=== PATIENT | male | born 1990 | race Caucasian/White ===

== ENCOUNTER 2018-06-12 01:27 | Emergency (ER) | payer OTHER ==
[~2018-06-12] VITALS: Ht 188 cm; Wt 136.4 kg
[2018-06-12 05:03] LABS: BASOPHILS % (AUTO) 0.5 % (0.0-2.0); EOSINOPHILS % (AUTO) 2.9 % (1.0-6.0); HEMATOCRIT 45.2 % (41-53); HEMOGLOBIN 14.9 g/dL (13.5-17.5); LYMPHOCYTES # (AUTO) 2.4 K/uL (1.0-4.8); LYMPHOCYTES % (AUTO) 25.3 % (22.0-44.0); MEAN CORPUSCULAR HEMOGLOBIN 27.2 pg (26.0-34.0); MEAN CORPUSCULAR VOLUME 82 fL (80-100); MONOCYTES # (AUTO) 0.6 K/uL (0.1-1.0); MONOCYTES % (AUTO) 6.7 % (2.0-9.0); NEUTROPHILS % (AUTO) 64.6 % (40.0-70.0); PLATELET COUNT (AUTO) 217 K/uL (150-450); RED BLOOD CELL COUNT(AUTO) 5.49 MIL/uL (4.50-5.90); RED CELL DISTRIBUTION WIDTH 13.8 % (11.5-14.5)
[2018-06-12 05:06] LABS: ANION GAP 5 mmol/L (8-16); CALCIUM, TOTAL 9.3 mg/dL (8.8-10.5); CARBON DIOXIDE 30 mmol/L (22-29); CHLORIDE 103 mmol/L (98-107); CREATININE 0.95 mg/dL (0.60-1.30); GLOMERULAR FILTR. RATE CALC > 60 mL/min (>60); GLUCOSE,RANDOM 113 mg/dL (70-110); POTASSIUM 4.5 mmol/L (3.5-5.1); SODIUM SERUM 138 mmol/L (136-145); UREA NITROGEN, BLOOD 14 mg/dL (7-18)
[2018-06-12 05:12] LABS: ALANINE AMINOTRANSFERASE 68 U/L (12-78); ALBUMIN 3.8 g/dL (3.4-5.0); ALKALINE PHOSPHATASE 87 U/L (46-116); ASPARTATE AMINOTRANSFERASE 30 U/L (15-37); BILIRUBIN,TOTAL 0.4 mg/dL (0.1-1.0); TOTAL PROTEIN, SERUM 7.7 g/dL (6.4-8.2)
[2018-06-12 05:21] VITALS: BP 131/85
== END 2018-06-12 05:49 | disposition home or self-care (01) ==
LOC: EMS 01:27
DX: R20.2 Paresthesia of skin (principal); M79.602 Pain in left arm
CPT/HCPCS: 93005

== ENCOUNTER 2024-04-15 01:04 | Inpatient (IN) | payer SELFPAY ==
[2024-04-15] VITALS (7 sets, daily range): BP systolic 120; BP diastolic 40; PULSE 119–142; RESP 16–20; TEMP 102.7; O2SAT 68–100
[~2024-04-15] VITALS: Ht 188 cm; Wt 153.0 kg
[2024-04-15 01:54] LABS: COVID AG,FIA SOURCE NASAL SWAB
[2024-04-15 02:04] LABS: INFLUENZA TYPE A NEGATIVE FOR TYPE A (NEGATIVE); INFLUENZA TYPE B NEGATIVE FOR TYPE B (NEGATIVE)
[2024-04-15 02:06] LABS: SARS-COV2 (COVID) ANTIGEN,FIA Negative (Negative)
[2024-04-15] MEDS: ACETAMINOPHEN 500 MG TABLET PO ONE ×2 (03:11→14:00)
[2024-04-15] MEDS: KETOROLAC TROMETHAMINE 30 MG/ML VIAL IM ONE (03:11)
[2024-04-15 04:11] LABS: HEMATOCRIT 41.2 % (41-53); HEMOGLOBIN 13.4 g/dL (13.5-17.5); MEAN CORPUSCULAR HEMOGLOBIN 27.8 pg (26.0-34.0); MEAN CORPUSCULAR HGB CONC 32.6 G/dL (31.0-37.0); MEAN CORPUSCULAR VOLUME 85 fL (80-100); PLATELET COUNT (AUTO) 130 K/uL (150-450); RED BLOOD CELL COUNT(AUTO) 4.83 MIL/uL (4.50-5.90); RED CELL DISTRIBUTION WIDTH 14.6 % (11.5-14.5)
[2024-04-15 04:14] LABS: ANION GAP 20 mmol/L (8-16); CALCIUM, TOTAL 7.7 mg/dL (8.8-10.5); CARBON DIOXIDE 18 mmol/L (22-29); CHLORIDE 94 mmol/L (98-107); CREATININE 4.88 mg/dL (0.60-1.30); GLOMERULAR FILTR. RATE CALC 14 mL/min (>60); GLUCOSE,RANDOM 104 mg/dL (70-110); POTASSIUM 3.8 mmol/L (3.5-5.1); SODIUM SERUM 132 mmol/L (136-145); UREA NITROGEN, BLOOD 41 mg/dL (7-18)
[2024-04-15] MEDS: SODIUM CHLORIDE 0.9% 1,000 ML IV ONE ×4 (04:16→09:47)
[2024-04-15 04:32] LABS: LACTIC ACID 9.9 mmol/L (0.4-2.0)
[2024-04-15 04:45] LABS: C-REACTIVE PROTEIN QUANT 23.51 mg/dL (0.00-0.30); CREATINE KINASE, TOTAL ONLY 241 U/L (39-308)
[2024-04-15 04:59] LABS: BAND NEUTROPHILS % (MANUAL) 5 % (0-5); LYMPHOCYTES % (MANUAL) 4 % (22-44); MONOCYTES % (MANUAL) 4 % (2-9); SEGMENTED NEUTROPHILS % 87 % (40-70); TOTAL CELLS COUNTED 100
[2024-04-15] MEDS: VANCOMYCIN 1.75GM/WATER(PEG) 350 ML IV ONE (05:12)
[2024-04-15] MEDS: PIPERACILLIN SODIUM/TAZOBACTAM 4.5 GM in DEXTROSE 5%-WATER 100 ML IV ONE (05:12)
[2024-04-15 06:34] LABS: ALANINE AMINOTRANSFERASE 61 U/L (12-78); ALBUMIN 2.4 g/dL (3.4-5.0); ALKALINE PHOSPHATASE 119 U/L (46-116); ASPARTATE AMINOTRANSFERASE 45 U/L (15-37); BILIRUBIN,TOTAL 5.4 mg/dL (0.1-1.0); TOTAL PROTEIN, SERUM 5.4 g/dL (6.4-8.2)
[2024-04-15] MEDS: HYDROmorphone HCL 2 MG/ML SYRINGE IVP ONE (06:34)
[2024-04-15] MEDS ORDERED: 0.9% SODIUM CHLORIDE 5 ML NEB SOLUTION NEB ONE (06:36)
[2024-04-15] MEDS: ALBUTEROL SULFATE 2.5 MG/0.5 ML NEB SOLUTION NEB ONE (06:39)
[2024-04-15] MEDS ORDERED: ROCURONIUM BROMIDE 10 MG/ML 5 ML VIAL ONE (06:44)
[2024-04-15] MEDS ORDERED: FentaNYL CITRATE PF 100 MCG/2 ML VIAL ONE (06:44)
[2024-04-15] MEDS ORDERED: MIDAZOLAM HCL 2 MG/2 ML VIAL ONE (06:44)
[2024-04-15] MEDS ORDERED: PROPOFOL 1% 20 ML VIAL IVP ONE (06:44)
[2024-04-15] MEDS ORDERED: EPINEPHrine 1:10,000 [1 MG/10 ML] SYRINGE ONE (06:44)
[2024-04-15] MEDS ORDERED: LIDOCAINE/PF 2% 5 ML VIAL ONE (06:44)
[2024-04-15] MEDS ORDERED: 0.9% SODIUM CHLORIDE 10 ML VIAL ONE (06:44)
[2024-04-15] MEDS ORDERED: PHENYLEPHRINE HCL 10 MG/ML VIAL ONE (06:44)
[2024-04-15] MEDS: NOREPINEPHRINE 8 MG/0.9 % NACL 250 ML IV PRN (06:46)
[2024-04-15] MEDS: PHENYLEPHRINE 200 MG/D5%-WATER 250 ML IV PRN (08:59)
[2024-04-15] MEDS: CLINDAMYCIN 900 MG/D5% WATER 50 ML IV ONE (09:47)
[2024-04-15 09:52] LABS: PROTHROMBIN TIME 15.2 SEC (9.4-11.6)
[2024-04-15] MEDS: VASOPRESSIN 40 UNITS in DEXTROSE 5%-WATER 98 ML IV PRN (10:38)
[2024-04-15 12:51] LABS: ABG BASE EXCESS -22.2 mmol/L (-2.0-3.0); ABG CARBOXYHEMOGLOBIN 0.8 % (0.5-1.5); ABG METHEMOGLOBIN 0.9 % (0.0-1.5); ABG OXYGEN CONTENT 19.4 mL/dL (15.0-23.0); ABG OXYGEN SATURATION 96.4 % (94.0-98.0); ABG OXYHEMOGLOBIN 94.8 % (94.0-98.0); ABG PCO2 23 mmHg (32.0-48.0); ABG TOTAL HEMOGLOBIN 14.5 G/dL (13.5-17.5); PO2, ARTERIAL BG 97.7 mmHg (83.0-108.0); SOURCE, BLOOD GAS ARTERIAL; TEMPERATURE, FAHRENHEIT, BG 100.8 FAHREN (96.0-98.6)
[2024-04-15 12:52] LABS: ABG A-A DIFF O2 24.2 mmHg (10-20.0); ABG PH 7.112 (7.350-7.450); O2 DEVICE,BLOOD GAS ROOM AIR (ROOM AIR); SITE, BLOOD GAS ARTERIAL LINE
[2024-04-15] MEDS ORDERED: HYDROmorphone HCL 2 MG/ML SYRINGE IVP PRN (15:30)
[2024-04-15] MEDS ORDERED: MEPERIDINE-PF 25 MG/ML VIAL IVP PRN (15:30)
[2024-04-15] MEDS ORDERED: FentaNYL CITRATE PF 100 MCG/2 ML VIAL IVP PRN (15:30)
[2024-04-15] MEDS ORDERED: RINGERS SOLUTION,LACTATED 0 ML IV ONE (16:14)
[2024-04-15] MEDS ORDERED: SODIUM CHLORIDE 0.9% 1,000 ML ONE (16:16)
[2024-04-15] MEDS: CHLORHEXIDINE GLUCONATE 2% TOWELETTE [2'S/6'S] TP ONE (16:55)
[2024-04-15] MEDS: ETHYL ALCOHOL 62% ANTISEPTIC NASAL SANITIZER 0.6 ML AMPUL NASAL ONE (16:56)
[2024-04-15] MEDS: RINGERS SOLUTION,LACTATED 1,000 ML IV ONE (16:57)
[2024-04-15] MEDS ORDERED: ALBUTEROL SULFATE 2.5 MG/0.5 ML NEB SOLUTION NEB PRN (17:00)
[2024-04-15] MEDS ORDERED: IPRATROPIUM BROMIDE 0.5 MG/2.5 ML NEB SOLUTION NEB PRN (17:00)
[2024-04-15] MEDS ORDERED: VANCOMYCIN 1GM/WATER(PEG/NADA) 200 ML IV PRN (18:15)
[2024-04-15] MEDS ORDERED: SODIUM CHLORIDE 0.9% 500 ML IV ONE (18:15)
[2024-04-15 18:19] LABS: HEMATOCRIT 42.4 % (41-53); HEMOGLOBIN 12.7 g/dL (13.5-17.5); MEAN CORPUSCULAR HEMOGLOBIN 26.5 pg (26.0-34.0); MEAN CORPUSCULAR VOLUME 89 fL (80-100); PLATELET COUNT (AUTO) 146 K/uL (150-450); RED BLOOD CELL COUNT(AUTO) 4.79 MIL/uL (4.50-5.90); RED CELL DISTRIBUTION WIDTH 15.9 % (11.5-14.5); WHITE BLOOD COUNT (AUTO) 12.7 K/uL (4.5-11.0)
[2024-04-15 18:28] LABS: ALBUMIN 1.7 g/dL (3.4-5.0); BILIRUBIN,TOTAL 3.9 mg/dL (0.1-1.0); CALCIUM, TOTAL 7.7 mg/dL (8.8-10.5); CREATININE 6.98 mg/dL (0.60-1.30); MAGNESIUM 2.4 mg/dL (1.80-2.40); POTASSIUM 5.4 mmol/L (3.5-5.1); TOTAL PROTEIN, SERUM 4.6 g/dL (6.4-8.2)
[2024-04-15] MEDS: CLINDAMYCIN 900 MG/D5% WATER 50 ML IV SCH (18:40)
[2024-04-15] MEDS: ACETAMINOPHEN 1000 MG/ISO-OSM 100 ML IV ONE (18:40)
[2024-04-15 18:50] LABS: PHOSPHORUS 17.5 mg/dL (2.5-4.9)
[2024-04-15 18:56] LABS: GLUCOMETER DEV NAME(LOC) ICUN.5; GLUCOSE,POINT OF CARE 47 MG/DL (70-110)
[2024-04-15 18:56] LABS: GLUCOMETER DEV NAME(LOC) ICUN.5; GLUCOSE,POINT OF CARE 102 MG/DL (70-110)
[2024-04-15] MEDS: *CLINICAL-LEVOFLOXACIN IVPB DOSING CLINICAL ONE (19:00)
[2024-04-15 19:01] LABS: BAND NEUTROPHILS % (MANUAL) 21 % (0-5); LYMPHOCYTES % (MANUAL) 7 % (22-44); METAMYELOCYTES % 2 % (0-0); MONOCYTES % (MANUAL) 8 % (2-9); RBC MORPHOLOGY COMMENT NORMAL RBC MORPH; SEGMENTED NEUTROPHILS % 62 % (40-70); TOTAL CELLS COUNTED 100; WBC MORPHOLOGY TOXIC VACUOLATION
[2024-04-15] MEDS: SODIUM BICARBONATE 75 MEQ in SODIUM CHLORIDE 0.45% 1,000 ML IV ONE (19:04)
[2024-04-15] MEDS: PIPERACILLIN SODIUM/TAZOBACTAM 2.25 GM in DEXTROSE 5%-WATER 50 ML IV SCH (19:04)
[2024-04-15] MEDS ORDERED: DEXTROSE 50%-WATER 25 GM/50 ML SYRINGE IVP ONE (19:47)
[2024-04-15] MEDS ORDERED: DEXTROSE 50%-WATER 25 GM/50 ML SYRINGE IVP PRN (20:00)
[2024-04-15] MEDS: DEXTROSE 50%-WATER 25 GM/50 ML SYRINGE IVP PRN (20:01)
[2024-04-15] MEDS: SODIUM BICARBONATE [ADULT] 8.4% 50 MEQ/50 ML SYRINGE IVP ONE ×3 (20:04→23:53)
[2024-04-15] MEDS: OXYGEN THERAPY IH SCH (20:05)
[2024-04-15] MEDS ORDERED: DOPamine 400MG/D5W[STANDARD] 250 ML IV ONE (20:06)
[2024-04-15] MEDS: DOPamine 400MG/D5W[STANDARD] 250 ML IV PRN (20:10)
[2024-04-15 20:15] LABS: GLUCOMETER DEV NAME(LOC) ICUN.5; GLUCOSE,POINT OF CARE 35 MG/DL (70-110)
[2024-04-15] MEDS: SODIUM BICARBONATE 150 MEQ in DEXTROSE 5%-WATER 1,000 ML IV SCH (20:31)
[2024-04-15 20:46] LABS: BASOPHILS % (AUTO) 0.5 % (0.0-2.0); EOSINOPHILS % (AUTO) 7.9 % (1.0-6.0); HEMATOCRIT 36.9 % (41-53); HEMOGLOBIN 11.1 g/dL (13.5-17.5); LYMPHOCYTES # (AUTO) 2.4 K/uL (1.0-4.8); LYMPHOCYTES % (AUTO) 14.8 % (22.0-44.0); MEAN CORPUSCULAR HEMOGLOBIN 27.2 pg (26.0-34.0); MEAN CORPUSCULAR VOLUME 91 fL (80-100); MONOCYTES # (AUTO) 0.6 K/uL (0.1-1.0); MONOCYTES % (AUTO) 3.5 % (2.0-9.0); NEUTROPHILS # (AUTO) 11.8 K/uL (1.8-7.7); NEUTROPHILS % (AUTO) 73.3 % (40.0-70.0); PLATELET COUNT (AUTO) 111 K/uL (150-450); RED BLOOD CELL COUNT(AUTO) 4.07 MIL/uL (4.50-5.90); RED CELL DISTRIBUTION WIDTH 15.9 % (11.5-14.5)
[2024-04-15] MEDS ORDERED: NOREPINEPHRINE 8 MG/0.9 % NACL 250 ML IV ONE (20:53)
[2024-04-15] MEDS: LEVOFLOXACIN 750 MG/D5% WATER 150 ML IV SCH (20:53)
[2024-04-15] MEDS: EPINEPHrine 5 MG in DEXTROSE 5%-WATER 245 ML IV PRN (21:03)
[2024-04-15 21:11] LABS: ALANINE AMINOTRANSFERASE 1119 U/L (12-78); ALBUMIN 1.2 g/dL (3.4-5.0); ALKALINE PHOSPHATASE 122 U/L (46-116); ANION GAP 29 mmol/L (8-16); BILIRUBIN,TOTAL 4.1 mg/dL (0.1-1.0); CALCIUM, TOTAL 8.6 mg/dL (8.8-10.5); CARBON DIOXIDE 15 mmol/L (22-29); CHLORIDE 93 mmol/L (98-107); CREATININE 7.04 mg/dL (0.60-1.30); GLOMERULAR FILTR. RATE CALC 9 mL/min (>60); GLUCOSE,RANDOM 210 mg/dL (70-110); SODIUM SERUM 137 mmol/L (136-145); TOTAL PROTEIN, SERUM 3.5 g/dL (6.4-8.2); UREA NITROGEN, BLOOD 56 mg/dL (7-18)
[2024-04-15 21:15] LABS: GLUCOMETER DEV NAME(LOC) ICUN.5; GLUCOSE,POINT OF CARE 219 MG/DL (70-110)
[2024-04-15 21:15] LABS: POTASSIUM 6.9 mmol/L (3.5-5.1)
[2024-04-15 21:15] LABS: GLUCOMETER DEV NAME(LOC) ICUN.5; GLUCOSE,POINT OF CARE 241 MG/DL (70-110)
[2024-04-15 21:16] LABS: ASPARTATE AMINOTRANSFERASE 1776 U/L (15-37)
[2024-04-15 21:20] LABS: LACTIC ACID 21.2 mmol/L (0.4-2.0)
[2024-04-15] MEDS ORDERED: SODIUM CHLORIDE 0.9% 250 ML IV ONE (21:23)
[2024-04-15 21:46] LABS: LACTATE DEHYDROGENASE 2294 U/L (85-227)
[2024-04-15] MEDS: DEXTROSE 50%-WATER 25 GM/50 ML SYRINGE IVP ONE (21:56)
[2024-04-15] MEDS: INSULIN REGULAR, HUMAN 100 UNITS/ML IVP ONE (21:58)
[2024-04-15 22:10] LABS: PHOSPHORUS 19.2 mg/dL (2.5-4.9)
[2024-04-15] MEDS: CHLORHEXIDINE GLUCONATE 2% TOWELETTE [2'S/6'S] TP SCH (22:15)
[2024-04-15 22:29] LABS: D-DIMER 9.8 mg/L FEU (0.00-0.50)
[2024-04-16] VITALS: BP 193/95; PULSE 132; RESP 16; RESP 24; TEMP 102.9; O2SAT 74
[2024-04-16 00:45] LABS: ABG BASE EXCESS -25.9 mmol/L (-2.0-3.0); ABG HCO3 7.1 mmol/L (21.0-28.0); ABG METHEMOGLOBIN 0.5 % (0.0-1.5); ABG OXYGEN SATURATION 97.2 % (94.0-98.0); ABG OXYHEMOGLOBIN 96.7 % (94.0-98.0); ABG PCO2 38 mmHg (32.0-48.0); ABG TOTAL HEMOGLOBIN 13.1 G/dL (13.5-17.5); PO2, ARTERIAL BG 135.8 mmHg (83.0-108.0); SOURCE, BLOOD GAS ARTERIAL; TEMPERATURE, FAHRENHEIT, BG 101.9 FAHREN (96.0-98.6)
[2024-04-16 01:00] VITALS: PULSE 122; RESP 16; O2SAT 79
[2024-04-16] MEDS: SODIUM BICARBONATE [ADULT] 8.4% 50 MEQ/50 ML SYRINGE IVP ONE ×2 (01:09→05:00)
[2024-04-16 01:14] LABS: ABG A-A DIFF O2 533.8 mmHg (10-20.0); ABG PH 6.886 (7.350-7.450); ALLEN TEST, BLOOD GAS N; O2 DEVICE,BLOOD GAS VENT (ROOM AIR); PEEP,BG 5 cm H2O; SITE, BLOOD GAS RT FEMORAL; VT, ABG 750 ml
[2024-04-16] MEDS: HYDROCORTISONE SOD SUCC 100 MG/2 ML VIAL IVP SCH (01:33)
[2024-04-16] MEDS: NOREPINEPHRINE 8 MG/0.9 % NACL 250 ML IV PRN (01:34)
[2024-04-16 02:06] LABS: GLUCOMETER DEV NAME(LOC) ICUN.5; GLUCOSE,POINT OF CARE 201 MG/DL (70-110)
[2024-04-16] MEDS: ACETAMINOPHEN 325 MG TABLET PO PRN (02:58)
[2024-04-16 04:00] VITALS: BP 0/0; PULSE 110; RESP 24; TEMP 101.6; O2SAT 67
[2024-04-16 04:10] VITALS: PULSE 115; RESP 16; O2SAT 65
[2024-04-16] MEDS: INSULIN LISPRO 100 UNITS/ML SQ PRN (05:35)
[2024-04-16 06:09] VITALS: BP 0/0; PULSE 86
[2024-04-16] MEDS: PHENYLEPHRINE 200 MG/D5%-WATER 250 ML IV PRN (06:10)
[2024-04-16 06:27] LABS: HEMATOCRIT 34.7 % (41-53); HEMOGLOBIN 10.4 g/dL (13.5-17.5); MEAN CORPUSCULAR HEMOGLOBIN 27.2 pg (26.0-34.0); MEAN CORPUSCULAR HGB CONC 30.1 G/dL (31.0-37.0); MEAN CORPUSCULAR VOLUME 90 fL (80-100); RED BLOOD CELL COUNT(AUTO) 3.85 MIL/uL (4.50-5.90); RED CELL DISTRIBUTION WIDTH 16.3 % (11.5-14.5); WHITE BLOOD COUNT (AUTO) 19.5 K/uL (4.5-11.0)
[2024-04-16] MEDS ORDERED: DEXTROSE 50%-WATER 25 GM/50 ML SYRINGE IVP ONE (06:35)
[2024-04-16] MEDS ORDERED: SODIUM BICARBONATE [ADULT] 8.4% 50 MEQ/50 ML SYRINGE IVP ONE (06:35)
[2024-04-16] MEDS ORDERED: CALCIUM CHLORIDE 100 MG/ML 10 ML SYRINGE IVP ONE (06:35)
[2024-04-16] MEDS ORDERED: EPINEPHrine 1:10,000 [1 MG/10 ML] SYRINGE IVP ONE (06:35)
[2024-04-16 07:03] LABS: ALBUMIN 0.9 g/dL (3.4-5.0); BILIRUBIN,TOTAL 3.6 mg/dL (0.1-1.0); C-REACTIVE PROTEIN QUANT 14.23 mg/dL (0.00-0.30); CREATININE 7.3 mg/dL (0.60-1.30); TOTAL PROTEIN, SERUM 2.7 g/dL (6.4-8.2)
[2024-04-16 07:04] LABS: PLATELET COUNT (AUTO) 92 K/uL (150-450)
[2024-04-16 07:11] LABS: BAND NEUTROPHILS % (MANUAL) 16 % (0-5); EOSINOPHILS % (MANUAL) 1 % (1-6); LYMPHOCYTES % (MANUAL) 9 % (22-44); METAMYELOCYTES % 2 % (0-0); MONOCYTES % (MANUAL) 4 % (2-9); SEGMENTED NEUTROPHILS % 68 % (40-70); TOTAL CELLS COUNTED 100; WBC MORPHOLOGY TOXIC GRANULATION
[2024-04-16 07:12] LABS: CALCIUM, TOTAL 5.5 mg/dL (8.8-10.5); POTASSIUM 7.6 mmol/L (3.5-5.1)
[2024-04-16 07:45] LABS: INFLUENZA A-RTPCR,COMBO NEGATIVE (NEGATIVE); INFLUENZA B-RTPCR,COMBO NEGATIVE (NEGATIVE); RESPIRATORY SYNCYTIAL VRS-PCR NEGATIVE (NEGATIVE); SARS COVID19 RTPCR, COMBO NEGATIVE (NEGATIVE)
[2024-04-16] MEDS ORDERED: PANTOPRAZOLE SODIUM 40 MG/VIAL IVP SCH (09:00)
[2024-04-16 09:06] LABS: GLUCOMETER DEV NAME(LOC) ICUN.5; GLUCOSE,POINT OF CARE 410 MG/DL (70-110)
== END 2024-04-16 06:36 | DRG 853 ==
LOC: EMS 01:04 → EDH 15:39 → ICU 16:45
PROVIDERS: ADMIT Hospitalist; ATTEND Hospitalist
PROC: 5A1935Z Respiratory Ventilation, Less than 24 Consecutive Hours (ICD-10-PCS; 2024-04-15)
PROC: 04HY32Z Insertion of Monitoring Device into Lower Artery, Percutaneous Approach (ICD-10-PCS; 2024-04-15)
PROC: 0BH17EZ Insertion of Endotracheal Airway into Trachea, Via Natural or Artificial Opening (ICD-10-PCS; 2024-04-15)
PROC: 5A12012 Performance of Cardiac Output, Single, Manual (ICD-10-PCS; 2024-04-15)
PROC: 06HY33Z Insertion of Infusion Device into Lower Vein, Percutaneous Approach (ICD-10-PCS; 2024-04-15)
PROC: 0JBL0ZZ Excision of Right Upper Leg Subcutaneous Tissue and Fascia, Open Approach (ICD-10-PCS; principal; 2024-04-15 15:25)
PROC: 5A12012 Performance of Cardiac Output, Single, Manual (ICD-10-PCS; 2024-04-16)
DX: A41.9 Sepsis, unspecified organism (principal); J96.00 Acute respiratory failure, unspecified whether with hypoxia or hypercapnia; R65.21 Severe sepsis with septic shock; E87.20 Acidosis, unspecified; N17.9 Acute kidney failure, unspecified; L03.314 Cellulitis of groin; L03.115 Cellulitis of right lower limb; I47.20 Ventricular tachycardia, unspecified; Z68.41 Body mass index [BMI] 40.0-44.9, adult; I46.9 Cardiac arrest, cause unspecified; E66.01 Morbid (severe) obesity due to excess calories; Z20.822 Contact with and (suspected) exposure to COVID-19; R59.0 Localized enlarged lymph nodes
CPT/HCPCS: 0241U; 36600; 71045; 73700; 74176; 80048; 80053; 80076; 82550; 82805; 82962; 83605; 83615; 83735; 83880; 84100; 84145; 85025; 85379; 85384; 85610; 85730; 86140; 86738; 86850; 86900; 86901; 87040; 87070; 87081; 87101; 87205; 87804; 88307; 92950; 94002; 94640; 99291; J0131; J0171; J1171; J1265; J1720; J1815; J1885; J1956; J2250; J2370; J2543; J2704; J3010; J3490; J7030; J7040; J7050; J7060; J7120; 36415-L1; 36415-TC; J7613